=== PATIENT | female | born 1955 | race Caucasian/White ===

== ENCOUNTER → 2021-05-31 12:14 | Outpatient (CLI) | payer MEDICARE, SELFPAY ==
--- NOTE | 2021-05-31 12:22 | DI.US.S_ITS ---
PROCEDURE: US PELVIC COMPLETE INDICATIONS: Postmenopausal bleeding. TECHNIQUE: Real-time scanning was performed of the pelvic organs, with image documentation. Additional endovaginal scanning was necessary due to incomplete visualization of the adnexal and endometrial structures by transabdominal scanning. COMPARISON: None. FINDINGS: Uterus: The uterus is anteverted and measures 8.3 x 5.1 x 5.7 cm. The endometrium measures 18.3 mm in combined thickness. Ovaries: Not visualized. Other: No pathologic free abdominal or pelvic fluid. IMPRESSION: Thickening of the endometrium, concerning for hyperplasia and/or mass. Dictated by: Kev Womack M.D. on 05/31/2021 at 13:46 Approved by: Kev Womack M.D. on 05/31/2021 at 13:49
== END ==
PROVIDERS: PCP Nurse Practitioner Family; Referring Provider Obstetrics & Gynecology; Visit Provider Obstetrics & Gynecology
DX: N95.0 Postmenopausal bleeding (principal); R93.89 Abnormal findings on diagnostic imaging of other specified body structures
CPT/HCPCS: 76830; 76856

== ENCOUNTER → 2023-01-17 14:41 | Outpatient (CLI) | payer MEDICARE, SELFPAY ==
--- NOTE | 2023-01-17 14:44 | DI.US.S_ITS ---
PROCEDURE: US PELVIC COMPLETE INDICATIONS: post menopausal bleeding TECHNIQUE: Real-time scanning was performed of the pelvic organs, with image documentation. Additional endovaginal scanning was necessary due to incomplete visualization of the adnexal and endometrial structures by transabdominal scanning. COMPARISON: [facility], , US PELVIC COMPLETE, 05/31/2021, 13:02. FINDINGS: Uterus: Uterus is anteverted and normal in size at 8.0 x 4.2 x 4.3 cm. The myometrium is heterogeneous. The endometrium measures 17 mm combined thickness. This is similar to the previous study, in which it measured 18 mm. Uterine prolapse is noted. Ovaries: Not seen, possibly secondary to involutional change. Other: No pathologic free abdominal or pelvic fluid. IMPRESSION: 1. Marked endometrial thickening, as before in a postmenopausal female who is bleeding. Consider endometrial hyperplasia versus endometrial carcinoma. 2. Uterine prolapse. We strive to produce accurate, complete, and clear reports of imaging services. To assist us in improving patient care, this report was composed using standard report templates and voice recognition software. Therefore, it may contain abnormal punctuation, insertions and/or omissions. Occasional wrong-word or sound-alike substitutions may occur. Though we review the report and make efforts to correct it, we do recommend that the report be read carefully in proper context to recognize any text inaccuracies. Dictated by: Jero Cazares M.D. on 01/17/2023 at 17:33 Approved by: Jero Cazares M.D. on 01/17/2023 at 17:37
== END ==
PROVIDERS: PCP Family Medicine; Referring Provider Obstetrics & Gynecology; Visit Provider Obstetrics & Gynecology
DX: N95.0 Postmenopausal bleeding (principal); R93.89 Abnormal findings on diagnostic imaging of other specified body structures; N81.4 Uterovaginal prolapse, unspecified
CPT/HCPCS: 76856

== ENCOUNTER → 2023-06-20 10:37 | Outpatient (CLI) | payer MEDICARE, SELFPAY ==
--- NOTE | 2023-06-20 | DI.ECHO.S_ITS ---
[facility] +---------+ : : [address] : [address] : : : : [id number] : : : : Phone: [phone]+ Echocardiogram Report + + :Name: RHONDA VARGAS Study Date: 06/20/2023 Height: 70 in : :[facility] ReadingLocation: Weight: 180 lb : : Gender: Female BSA: 2.0 m2 : :: 1955 Age: 68 yrs BP: 146/82 mmHg: :Reason For Study: SVT : :Ordering Physician: KAYLEN MOSES Performed By: Radha Garcia : :Referring: KAYLEN MOSES : + + Interpretation Summary 1) Normal left ventricular thickness, size, wall motion, and systolic function (EF 60-65%). 2) Normal right ventricular size and function. 3) No significant valvular abnormalities. 4) No prior Echo available for comparison. Procedure: A two-dimensional transthoracic echocardiogram with color flow and Doppler was performed. The study quality was technically adequate. There is no prior echocardiogram noted for this patient. The patient was in normal sinus rhythm during the exam. Left Ventricle: The left ventricle is normal in size and wall thickness. The ejection fraction is estimated to be 60-65%. Left ventricular systolic function appears normal without focal wall motion abnormalities. Diastolic parameters suggest a relaxation abnormality of the left ventricle, consistent with probable normal filling pressures. Right Ventricle: The right ventricle is normal in size and function. Atria: The left atrial size is normal. Right atrial size is normal. There is no Doppler evidence for an interatrial shunt. Mitral Valve: The mitral valve is normal. There is no mitral valve stenosis. There is trace mitral regurgitation. Aortic Valve: The aortic valve is trileaflet. The aortic valve opens well. There is no aortic valve stenosis. No aortic regurgitation is present. Tricuspid Valve: The tricuspid valve is normal. There is no tricuspid stenosis. There is trace tricuspid regurgitation. Pulmonary artery pressures cannot be estimated because of the lack of a measurable TR jet velocity. Pulmonic Valve: The pulmonic valve is not well visualized. There is no pulmonic valvular stenosis. There is trace pulmonic regurgitation. Great Vessels: The aortic root is normal size. The ascending aorta is normal in size. The pulmonary artery is normal size. The IVC is of normal diameter and collapses greater than 50% with a sniff. This suggests a low right atrial pressure of 3 mm Hg. Pericardium/ Pleura There is no pericardial effusion. There is no pleural effusion. MMode/2D Measurements & Calculations LVIDd: 4.2 cm LVOT diam: 2.0 cm LVIDs: 3.0 cm Ao root diam: 3.1 cm FS: 28.6 % asc Aorta Diam: 3.3 cm IVSd: 0.90 cm LVPWd: 0.90 cm LV quinones. diameter/BSA (cm/m^2): 2.1 LV sys. diameter/BSA (cm/m^2): 1.5 LA A2 area: 20.4 cm2 RA long axis: 4.4 cm LA A4 area: 12.4 cm2 RA area: 11.7 cm2 LA length (vol): 5.4 cm RA vol: 26.4 ml LA vol: 40.1 ml RA : 13.2 ml/m2 LA vol index: 20.1 ml/m2 RVD1 (basal): 3.4 cm LVLs ap4: 6.0 cm LVLd ap2: 7.2 cm TAPSE_phl: 1.9 cm LVLs ap2: 5.4 cm Doppler Measurements & Calculations Ao V2 max: 122.3 cm/sec LVOT Max Ken: 111.0 cm/sec Ao V2 mean: 85.6 cm/sec LV V1 max P.9 mmHg Ao max P.0 mmHg LV V1 VTI: 22.9 cm Ao mean P.3 mmHg JOSE(I,D): 2.9 cm2 Ao V2 VTI: 25.1 cm JOSE(V,D): 2.9 cm2 sev ratio: 0.91 JOSE indexed to BSA (cm^2/m^2): 1.4 MV E max ken: 81.6 cm/sec PA V2 max: 95.1 cm/sec MV A max ken: 96.3 cm/sec PA V2 mean: 64.3 cm/sec MV E/A: 0.85 PA mean P.0 mmHg Med Peak E' Ken: 6.5 cm/sec PA pr(Accel): 23.2 mmHg E/E' med: 12.5 Lat Peak E' Ken: 9.0 cm/sec E/E' lat: 9.0 E/e' average: 10.8 MV dec time: 0.24 sec SV(LVOT): 71.9 ml AV VR_phl: 0.91 JOSE(VTI)/BSA_phl: 1.4 Reading Physician:01:24 PM
== END ==
PROVIDERS: PCP Family Medicine; Referring Provider Internal Medicine Cardiovascular Disease; Visit Provider Internal Medicine Cardiovascular Disease
DX: I47.10 Supraventricular tachycardia, unspecified (principal)
CPT/HCPCS: 93306

== ENCOUNTER → 2024-01-07 | Outpatient (CLI) | payer MEDICARE, SELFPAY ==
--- NOTE | 2024-01-07 16:02 | DI.MRI.S_ITS ---
PROCEDURE: MR PELVIS WO/W CON INDICATIONS: Malignant neoplasm of endometrium TECHNIQUE: Coronal HASTE, sagittal breath-hold T2 FSE; axial T1 FSE with and without fat saturation through the pelvis. Optional long- and short-axis uterine nonbreath-hold T2 FSE through the uterus. Sagittal or axial dynamic VIBE during administration of contrast. Post-contrast axial or coronal VIBE/2-D FLASH with fat saturation from the iliac crests to the symphysis. Optional diffusion weighted imaging and ADC may be performed. COMPARISON: [facility], , US PELVIC COMPLETE, 01/17/2023, 14:53. FINDINGS: Image quality: Excellent. Uterus: Uterus is normal in size measuring 7 cm. Endometrium is normal in thickness measuring 3 mm. (Previously documented on remote ultrasound at 17 mm). IUD centered in the endometrial canal. No suspicious enhancement identified. No restricted diffusion. Junctional zone is normal in thickness at 12 mm or less. Adnexa: No suspicious cystic or solid lesions. Urinary system: Bladder wall is normal in thickness. Distal ureters are non distended. Urethra appears normal in morphology. Nodes and vessels: No pelvic or inguinal adenopathy by size criteria. Iliac vessels are normal in size. Bowel and peritoneum: No pathologic free pelvic fluid. Inferior colon and small bowel loops are normal in caliber. Soft tissues: No inguinal hernias. Pelvic descent. Bones: Marrow demonstrates normal overall signal. IMPRESSION: 1. Endometrium measures 3 mm. IUD centered in the endometrial canal. 2. No suspicious enhancement or mass demonstrated. No adenopathy. 3. Pelvic descent. Dictated by: Luis Liriano M.D. on 01/08/2024 at 9:01 Approved by: Luis Liriano M.D. on 01/08/2024 at 9:10
== END ==
PROVIDERS: PCP Family Medicine; Referring Provider Family Medicine; Visit Provider Family Medicine
DX: C54.1 Malignant neoplasm of endometrium (principal); M51.16 Intervertebral disc disorders with radiculopathy, lumbar region; M47.26 Other spondylosis with radiculopathy, lumbar region; M47.27 Other spondylosis with radiculopathy, lumbosacral region; M48.061 Spinal stenosis, lumbar region without neurogenic claudication; M48.07 Spinal stenosis, lumbosacral region; Z97.5 Presence of (intrauterine) contraceptive device
CPT/HCPCS: 72148; 72197; A9579

== ENCOUNTER → 2024-11-23 10:08 | Outpatient (CLI) | payer MEDICARE, OTHER, SELFPAY ==
--- NOTE | 2024-11-23 10:11 | DI.RAD.S_ITS ---
PROCEDURE: XR DEXA AXIAL SKELETON INDICATIONS: MENOPAUSAL SYMPTOMS COMPARISON: None. FINDINGS: Lumbar Spine: Bone mineral density 1.108 g/cm2, T score 0.6. Left Femoral Neck: Bone mineral density 0.774 g/cm2, T score -0.7. Left Hip: Bone mineral density 0.926 g/cm2, T score -0.1. Fracture Risk Calculation (when applicable): 10-year fracture risk of a major osteoporotic fracture 8.1 percent and of a hip fracture 0.6 percent. (T score greater or equal to -1.0 to: NORMAL) (T score from -1.1 to -2.4: OSTEOPENIA) (T score less than or equal to -2.5: OSTEOPOROSIS) IMPRESSION: Normal bone mineral density by WHO classification. Follow-up guidelines as follows: Osteoporosis: Consider a repeat DEXA and Vertebral Fracture Assessment (VFA) exam in 2 years or sooner if medically necessary, to reassess this patient's status. Osteopenia: Consider a repeat DEXA in 2-3 years to reassess this patient's status, or if there is a new clinical indication. Normal: Consider a repeat DEXA in 5 years or sooner, or if there is a new clinical indication. All treatment decisions require clinical judgment and consideration of individual patient factors, including patient preferences, comorbidities, previous drug use, risk factors not captured in the FRAX model (e.g., frailty, falls, vitamin D deficiency, increased bone turnover, interval significant decline in bone density ) and possible under- or over-estimation of fracture risk by FRAX. In addition, the NOF Guide recommends that FDA-approved medical therapies be considered in postmenopausal women and men age >= 50 years with a: * Hip or vertebral (clinical or morphometric) fracture * T-score of <=-2.5 at the spine or hip * Ten-year fracture probability by FRAX of >= 3% for hip fracture or >=20% for major osteoporotic fracture. Dictated by: Leoncio Watson M.D. on 11/23/2024 at 14:32 Approved by: Leoncio Watson M.D. on 11/23/2024 at 14:33
== END ==
PROVIDERS: PCP Family Medicine; Referring Provider Family Medicine; Visit Provider Family Medicine
DX: N95.9 Unspecified menopausal and perimenopausal disorder (principal)
CPT/HCPCS: 77080